=== PATIENT | male | born 1950 | race Caucasian/White ===

== ENCOUNTER 2019-12-31 19:40 | Emergency (ER) | payer BC ==
[~2019-12-31 19:40] MED LIST: ACETAMINOPHEN-H1 TA2 PO; AZITHROMYCIN500 M2 PO; BACTROBAN OINT22 GM PO; CEFTRIAXON1 GM/50 ML IV; COUMADIN5 M2 PO; DARVOCET N 1001 TAB PO; FLEXERIL10 MG PO; HEPARIN SODIUM IV; MORPHINE SULF2 MG/M1 IV; MOTRIN800 MG PO; TEMAZEPAM15 M1 PO
[2019-12-31] MEDS ORDERED: NORCO 5-325 TA1 EACH PO (22:23)
== END 2019-12-31 22:04 | disposition home or self-care (01) ==
LOC: ED 19:40
DX: S22.41XA Multiple fractures of ribs, right side, initial encounter for closed fracture (principal); S42.001A Fracture of unspecified part of right clavicle, initial encounter for closed fracture; V29.9XXA Motorcycle rider (driver) (passenger) injured in unspecified traffic accident, initial encounter; Y93.55 Activity, bike riding; Y92.89 Other specified places as the place of occurrence of the external cause; Y99.8 Other external cause status

== ENCOUNTER 2020-03-13 17:18 | Emergency (ER) | payer OTHER ==
[~2020-03-13] VITALS: Wt 79.8 kg
[~2020-03-13 17:18] MED LIST changes: +NORCO 5-325 TA1 EACH PO
[2020-03-13 18:33] LABS: BASO % 0.2 % (0.0-1.0); LYMPH # 0.8 10*3/uL (1.3-4.4); LYMPH % 16.3 % (27.0-41.0); MEAN CELL VOLUME 88.7 fl (80.0-94.0); MEAN CORPUSCULAR HGB 29.7 pg (27.0-31.0); MEAN CORPUSCULAR HGB CONC 33.5 g/dl (33.0-37.0); MEAN PLATELET VOLUME 10.3 fl (9.6-12.3); MONO # 0.6 10*3/uL (0.1-1.0); MONO % 11.8 % (3.0-9.0); NEUT # 3.4 10*3/uL (2.3-7.9); NEUT % 71.5 % (47.0-73.0); PLATELET COUNT AUTOMATED 164 10*3/uL (130-400); RED BLOOD COUNT 4.17 10*6/uL (4.50-5.90); RED CELL DISTRI WIDTH 13.2 % (0-14.5); WHITE BLOOD COUNT 4.7 10*3/uL (4.8-10.8)
[2020-03-13 18:49] LABS: ALBUMIN 3.1 gm/dl (3.1-4.5); ALKALINE PHOSPHATASE 90 U/L (45-117); BUN 16 mg/dl (7-24); CHLORIDE 101 mmol/L (98-107); CREATININE 0.97 mg/dL (0.70-1.30); POTASSIUM 3.8 mmol/L (3.5-5.1); SGOT/AST 33 IU/L (3-35); SGPT/ALT 29 U/L (12-78); SODIUM 135 mmol/L (136-145); TOTAL PROTEIN 6.8 gm/dL (6.4-8.2)
[2020-03-13 19:01] LABS: TROPONIN I < 0.015 ng/ml (<0.045)
== END 2020-03-13 19:40 | disposition home or self-care (01) ==
LOC: ED 17:18
PROVIDERS: Emergency Medicine
DX: R05 Cough (principal); R50.9 Fever, unspecified; Z20.828 Contact with and (suspected) exposure to other viral communicable diseases; Z86.718 Personal history of other venous thrombosis and embolism

== ENCOUNTER → 2020-05-08 | Outpatient (CLI) | payer OTHER | END | disposition home or self-care (01) | LOC: CARD 12:48 | PROVIDERS: ATTEND Internal Medicine Cardiovascular Disease | DX: I07.1 Rheumatic tricuspid insufficiency (principal); I48.0 Paroxysmal atrial fibrillation ==

== ENCOUNTER → 2021-02-16 | Outpatient (CLI) | payer OTHER ==
[2021-02-16 08:54] LABS: CHLORIDE 107 mmol/L (98-107); POTASSIUM 4.1 mmol/L (3.5-5.1); SODIUM 140 mmol/L (136-145)
[2021-02-16 09:16] LABS: BUN 25 mg/dl (7-24); CREATININE 0.98 mg/dL (0.70-1.30)
== END | disposition home or self-care (01) ==
LOC: LAB 08:08
PROVIDERS: ATTEND Internal Medicine
DX: I71.8 Aortic aneurysm of unspecified site, ruptured (principal)

== ENCOUNTER → 2021-02-18 | Outpatient (CLI) | payer OTHER | END | disposition home or self-care (01) | LOC: CT 01:56 | PROVIDERS: ATTEND Internal Medicine | DX: I71.2 Thoracic aortic aneurysm, without rupture (principal); I25.10 Atherosclerotic heart disease of native coronary artery without angina pectoris; J98.11 Atelectasis; M43.8X4 Other specified deforming dorsopathies, thoracic region ==

== ENCOUNTER → 2021-04-08 | Outpatient (CLI) | payer OTHER | END | disposition home or self-care (01) | LOC: COVID19 15:23 | PROVIDERS: ATTEND Internal Medicine | DX: Z11.52 Encounter for screening for COVID-19 (principal); I48.19 Other persistent atrial fibrillation ==

== ENCOUNTER → 2021-12-07 | Outpatient (CLI) | payer OTHER ==
[2021-12-07 09:18] LABS: BUN 22 mg/dl (7-24); CHLORIDE 108 mmol/L (98-107); CHOLESTEROL 174 mg/dL (<200); CREATININE 1.09 mg/dL (0.70-1.30); POTASSIUM 4.3 mmol/L (3.5-5.1); SGOT/AST 30 IU/L (3-35); SGPT/ALT 39 U/L (12-78); SODIUM 140 mmol/L (136-145); TOTAL PROTEIN 6.7 gm/dL (6.4-8.2); TRIGLYCERIDES 71 mg/dl (<150)
[2021-12-07 09:22] LABS: ALKALINE PHOSPHATASE 54 U/L (45-117); LDL CHOLESTEROL 103 mg/dL (9-159)
== END | disposition home or self-care (01) ==
LOC: LAB 08:26
PROVIDERS: ATTEND Family Medicine
DX: I48.19 Other persistent atrial fibrillation (principal); Z12.5 Encounter for screening for malignant neoplasm of prostate; Z13.220 Encounter for screening for lipoid disorders; Z13.6 Encounter for screening for cardiovascular disorders

== ENCOUNTER → 2022-03-23 | Outpatient (CLI) | payer OTHER ==
[2022-03-23 09:49] LABS: BUN 22 mg/dl (7-24); CHLORIDE 109 mmol/L (98-107); CREATININE 0.97 mg/dL (0.70-1.30); POTASSIUM 4.5 mmol/L (3.5-5.1); SODIUM 140 mmol/L (136-145)
== END | disposition home or self-care (01) ==
LOC: LAB 09:07
PROVIDERS: ATTEND Internal Medicine
DX: T81.718D Complication of other artery following a procedure, not elsewhere classified, subsequent encounter (principal); I48.0 Paroxysmal atrial fibrillation; X58.XXXD Exposure to other specified factors, subsequent encounter

== ENCOUNTER → 2022-03-29 | Outpatient (CLI) | payer OTHER | END | disposition home or self-care (01) | LOC: CT 09:57 | PROVIDERS: ATTEND Internal Medicine | DX: J98.11 Atelectasis (principal); I25.10 Atherosclerotic heart disease of native coronary artery without angina pectoris; K76.89 Other specified diseases of liver; I71.2 Thoracic aortic aneurysm, without rupture ==

== ENCOUNTER → 2024-06-05 | Outpatient (CLI) | payer MEDICARE ==
[2024-06-05 10:05] LABS: BUN 19 mg/dl (9-23); CHLORIDE 105 mmol/L (98-107); POTASSIUM 4.3 mmol/L (3.4-5.1)
== END | disposition home or self-care (01) ==
LOC: LAB 09:17
PROVIDERS: ATTEND Internal Medicine
DX: I71.20 Thoracic aortic aneurysm, without rupture, unspecified (principal)

== ENCOUNTER → 2024-06-07 | Outpatient (CLI) | payer MEDICARE ==
[~2024-06-07] MED LIST changes: +IOHEXOL 350 MG/ML 100 ML VIAL IV ONE; +SODIUM CHLORIDE 0.9% 100 ML BAG IV ONE
== END | disposition home or self-care (01) ==
LOC: CT 00:09
PROVIDERS: ATTEND Internal Medicine
DX: I71.21 Aneurysm of the ascending aorta, without rupture (principal)